=== PATIENT | female | born 1935 | race American Indian/Alaskan Native ===

== ENCOUNTER 2020-09-05 11:52 | Emergency (ER) | payer MEDICARE, OTHER ==
--- NOTE | 2020-09-05 12:14 | EDM.PDOC ---
ED HPI GENERAL MEDICAL PROBLEM - General Chief Complaint: Respiratory Problem Stated Complaint: shortness of breath Time Seen by Provider: 09/05/20 12:13 Source of Information: Reports: Patient, Family (granddaughter), Old Records, RN, RN Notes Reviewed History Limitations: Reports: No Limitations - History of Present Illness INITIAL COMMENTS - FREE TEXT/NARRATIVE: Pt arrives to ER from home by ambulance with c/o not been feeling good for about a week. She reports shortness of breath, fatigue, and has not been eating well. Her home health nurse was in to see patient today and found patient to have O2 sats in the 70's. The paramedics gave oxygen at 5L/min. by nasal cannula, and she felt less short of breath. Patient states she has had family around her with known COVID. Pt also c/o black diarrhea that smells "rotted". Denies chest pain, fever, abdominal pain, vomiting, lightheadedness, or syncope. Onset: Gradual Duration: Day(s): (5) Location: Reports: Chest, Generalized Quality: Reports: Other (Denies pain) Severity: Severe Improves with: Reports: None Worsens with: Reports: None Context: Reports: Sick Contact Associated Symptoms: Reports: No Other Symptoms - Related Data Allergies Allergy/AdvReac Type Severity Reaction Status Date / Time No Known Allergies Allergy Verified 09/05/20 12:16 Home Meds: Home Meds Aspirin 81 mg PO DAILY 09/05/20 [History] Cholecalciferol (Vitamin D3) [Vitamin D3] 25 mcg PO DAILY 09/05/20 [History] Insulin Detemir [Levemir] 20 units SUBCUT BEDTIME 09/05/20 [History] Insulin Lispro [Humalog] 15 units SUBCUT ASDIRECTED 09/05/20 [History] Levothyroxine 25 mcg PO DAILY 09/05/20 [History] Loratadine [Claritin] 10 mg PO DAILY 09/05/20 [History] Metoprolol Succinate [Toprol Xl] 25 mg PO DAILY 09/05/20 [History] Multivitamin 1 tab PO DAILY 09/05/20 [History] lisinopriL [Lisinopril] 40 mg PO DAILY 09/05/20 [History] Past Medical History HEENT History: Reports: Hard of Hearing Cardiovascular History: Reports: Hypertension Endocrine/Metabolic History: Reports: Diabetes, Type II, Hypothyroidism, IDDM, Vitamin D Deficiency Social & Family History - Family History Family Medical History: No Pertinent Family History Other Respiratory Family Hisory: multiple close contact family members with active COVID infection as of 09/05/20. - Tobacco Use Tobacco Use Status *Q: Never Tobacco User - Alcohol Use Alcohol Use History: No - Recreational Drug Use Recreational Drug Use: No - Living Situation & Occupation Living situation: Reports: with Family Occupation: Retired ED ROS GENERAL - Review of Systems Review Of Systems: Comprehensive ROS is negative, except as noted in HPI. ED EXAM, GENERAL - Physical Exam Exam: See Below Exam Limited By: No Limitations General Appearance: Alert, WD/WN, No Apparent Distress, Other (Frail elderly female, appears ill but not toxic.) Eye Exam: Bilateral Eye: Normal Inspection Ears: Normal External Exam, Hearing Loss (chronic/stable) Nose: Normal Inspection, Normal Mucosa, No Blood Throat/Mouth: Normal Inspection, Normal Lips, Normal Voice, No Airway Compromise Head: Atraumatic, Normocephalic Neck: Normal Inspection, Supple, Non-Tender, Full Range of Motion Respiratory/Chest: No Respiratory Distress, Lungs Clear, Normal Breath Sounds, No Accessory Muscle Use, Chest Non-Tender. No: Crackles, Rales, Rhonchi, Wheezing, Stridor Cardiovascular: Regular Rate, Rhythm, No Edema GI/Abdominal: Normal Bowel Sounds, Soft, Non-Tender, No Organomegaly, No Distention, No Abnormal Bruit, No Mass (Female) Exam: Deferred Rectal (Female) Exam: Black Stool (Liquid), Heme + Stool Back Exam: Normal Inspection Extremities: Normal Inspection, Normal Range of Motion, Non-Tender, Normal Capillary Refill, No Pedal Edema Neurological: Alert, Oriented, CN II-XII Intact, Normal Cognition, No Motor/Sensory Deficits, Other (Generalized weakness) Psychiatric: Normal Mood Skin Exam: Warm, Dry, Intact, Normal Color, No Rash #1 Interpretation EKG Date: 09/05/20 Time: 13:24 Rhythm: Other (SR) Rate (Beats/Min): 79 [place]: LAD-Left [place] Deviation P-Wave: Present QRS: RBBB (LVH) ST-T: Normal QT: Prolonged (borderline) Comparison: NA - No Prior EKG Course - Vital Signs Last Recorded V/S: Last Vital Signs Temp 97.2 F 09/05/20 12:16 Pulse 80 09/05/20 12:16 Resp 18 09/05/20 12:16 BP 164/58 H 09/05/20 12:16 Pulse Ox 92 L 09/05/20 13:35 - Orders/Labs/Meds Orders: Active Orders 24 hr Category Date Time Status EKG 12 Lead [EKG Documentation Completion] [RC] STAT Care 09/05/20 12:16 Active Peripheral IV Care [RC] . DIRECTED Care 09/05/20 12:17 Active RT Post Treatment Assessment [RC] Click to Edit Care 09/05/20 12:18 Active RT Pre-Treatment Assessment [RC] Click to Edit Care 09/05/20 12:18 Active CLOSTRIDIUM DIFFICILE TOX RFLX [MREF] Stat Lab 09/05/20 12:37 Received CULTURE BLOOD [BC] Stat Lab 09/05/20 12:25 Received CULTURE BLOOD [BC] Stat Lab 09/05/20 12:28 Received CULTURE STOOL [RM] Stat Lab 09/05/20 12:53 Received SHIGA TOXIN 1 & 2 [MREF] Stat Lab 09/05/20 12:53 Received UA RFX PASCUAL AND CULT IF INDIC [URIN] Stat Lab 09/05/20 12:17 Ordered Pantoprazole [ProTONIX IV] 40 mg Med 09/05/20 15:00 Active Sodium Chloride 0.9% [Normal Saline] 100 ml IV .CONTINUOS Sodium Chloride 0.9% [Saline Flush] Med 09/05/20 12:17 Active 10 ml FLUSH ASDIRECTED PRN Blood Culture x2 Reflex Set [OM.PC] Stat Oth 09/05/20 12:16 Ordered Isolation [COMM] Routine Oth 09/05/20 12:15 Active Isolation [COMM] Stat Oth 09/05/20 12:52 Active Peripheral IV Insertion Adult [OM.PC] Stat Oth 09/05/20 12:16 Ordered Medication Orders Pantoprazole Sodium 40 mg/ (Sodium Chloride) 100 mls @ 20 mls/hr IV .CONTINUOS DENNYS Last Admin: 09/05/20 15:24 Dose: 20 mls/hr Documented by: Sodium Chloride (Saline Flush) 10 ml FLUSH ASDIRECTED PRN PRN Reason: Keep Vein Open Labs: Laboratory Tests 12/07/20 12/07/20 12/07/20 Range/Units 12:15 12:28 12:28 WBC 11.0 H (5.0-10.0) 10^3/uL RBC 3.49 L (4.2-5.4) 10^6/uL Hgb 10.8 L (12.0-16.0) g/dL Hct 31.5 L (37.0-47.0) % MCV 90.3 (80-100) fL MCH 30.9 (27.0-34.0) pg MCHC 34.3 (33.0-35.0) g/dL Plt Count 275 (150-450) 10^3/uL Neut % (Auto) 89.0 H (42.2-75.2) % Lymph % (Auto) 9.4 L (20.5-50.1) % [place] % (Auto) 1.5 L (2-8) % Eos % (Auto) 0.0 L (1.0-3.0) % Baso % (Auto) 0.1 (0.0-1.0) % PT (9.0-12.0) SEC INR (0.9-1.2) APTT (22.0-34.0) SEC D-Dimer, Quantitative (0-400) ng/mL Sodium 133 L (136-145) mmol/L Potassium 3.6 (3.5-5.1) mmol/L Chloride 101 (98-107) mmol/L Carbon Dioxide 15 L (21-32) mmol/L Anion Gap 20.6 H (7-13) mEq/L BUN 50 H (7-18) mg/dL Creatinine 1.92 H (0.55-1.02) mg/dL Est Cr Clr Drug Dosing 15.67 mL/min Estimated GFR (MDRD) 25 BUN/Creatinine Ratio 26.0 (No establ ref range) Glucose 205 H (74-99) mg/dL Lactic Acid (0.4-2.0) mmol/L Calcium 8.3 L (8.5-10.1) mg/dL Magnesium 2.3 (1.8-2.4) mg/dL Ferritin (8-252) mg/mL Total Bilirubin 0.4 (0.2-1.0) mg/dL AST 186 H (15-37) U/L ALT 69 H (14-59) U/L Alkaline Phosphatase 221 H (46-116) U/L Lactate Dehydrogenase 710 H (81-234) U/L Creatine Kinase 104 (16-191) U/L Troponin I < 0.017 (0.000-0.056) ng/mL C-Reactive Protein 30.5 H (0.0-0.9) mg/dL B-Natriuretic Peptide 214 H (0-100) pg/ml Total Protein 7.8 (6.4-8.2) g/dL Albumin 2.2 L (3.4-5.0) g/dL Globulin 5.6 Albumin/Globulin Ratio 0.39 SARS-CoV-2 RNA (CHRISTIANO) Positive H (NEGATIVE) 09/05/20 09/05/20 09/05/20 Range/Units 12:28 12:28 12:28 WBC (5.0-10.0) 10^3/uL RBC (4.2-5.4) 10^6/uL Hgb (12.0-16.0) g/dL Hct (37.0-47.0) % MCV (80-100) fL MCH (27.0-34.0) pg MCHC (33.0-35.0) g/dL Plt Count (150-450) 10^3/uL Neut % (Auto) (42.2-75.2) % Lymph % (Auto) (20.5-50.1) % [place] % (Auto) (2-8) % Eos % (Auto) (1.0-3.0) % Baso % (Auto) (0.0-1.0) % PT 10.1 (9.0-12.0) SEC INR 1.1 (0.9-1.2) APTT 27.5 (22.0-34.0) SEC D-Dimer, Quantitative 3630 H (0-400) ng/mL Sodium (136-145) mmol/L Potassium (3.5-5.1) mmol/L Chloride (98-107) mmol/L Carbon Dioxide (21-32) mmol/L Anion Gap (7-13) mEq/L BUN (7-18) mg/dL Creatinine (0.55-1.02) mg/dL Est Cr Clr Drug Dosing mL/min Estimated GFR (MDRD) BUN/Creatinine Ratio (No establ ref range) Glucose (74-99) mg/dL Lactic Acid 2.4 H* (0.4-2.0) mmol/L Calcium (8.5-10.1) mg/dL Magnesium (1.8-2.4) mg/dL Ferritin 3714 H (8-252) mg/mL Total Bilirubin (0.2-1.0) mg/dL AST (15-37) U/L ALT (14-59) U/L Alkaline Phosphatase (46-116) U/L Lactate Dehydrogenase (81-234) U/L Creatine Kinase (16-191) U/L Troponin I (0.000-0.056) ng/mL C-Reactive Protein (0.0-0.9) mg/dL B-Natriuretic Peptide (0-100) pg/ml Total Protein (6.4-8.2) g/dL Albumin (3.4-5.0) g/dL Globulin Albumin/Globulin Ratio SARS-CoV-2 RNA (CHRISTIANO) (NEGATIVE) 09/05/20 Range/Units 15:22 WBC (5.0-10.0) 10^3/uL RBC (4.2-5.4) 10^6/uL Hgb 11.0 L (12.0-16.0) g/dL Hct 32.2 L (37.0-47.0) % MCV (80-100) fL MCH (27.0-34.0) pg MCHC (33.0-35.0) g/dL Plt Count (150-450) 10^3/uL Neut % (Auto) (42.2-75.2) % Lymph % (Auto) (20.5-50.1) % [place] % (Auto) (2-8) % Eos % (Auto) (1.0-3.0) % Baso % (Auto) (0.0-1.0) % PT (9.0-12.0) SEC INR (0.9-1.2) APTT (22.0-34.0) SEC D-Dimer, Quantitative (0-400) ng/mL Sodium (136-145) mmol/L Potassium (3.5-5.1) mmol/L Chloride (98-107) mmol/L Carbon Dioxide (21-32) mmol/L Anion Gap (7-13) mEq/L BUN (7-18) mg/dL Creatinine (0.55-1.02) mg/dL Est Cr Clr Drug Dosing mL/min Estimated GFR (MDRD) BUN/Creatinine Ratio (No establ ref range) Glucose (74-99) mg/dL Lactic Acid (0.4-2.0) mmol/L Calcium (8.5-10.1) mg/dL Magnesium (1.8-2.4) mg/dL Ferritin (8-252) mg/mL Total Bilirubin (0.2-1.0) mg/dL AST (15-37) U/L ALT (14-59) U/L Alkaline Phosphatase (46-116) U/L Lactate Dehydrogenase (81-234) U/L Creatine Kinase (16-191) U/L Troponin I (0.000-0.056) ng/mL C-Reactive Protein (0.0-0.9) mg/dL B-Natriuretic Peptide (0-100) pg/ml Total Protein (6.4-8.2) g/dL Albumin (3.4-5.0) g/dL Globulin Albumin/Globulin Ratio SARS-CoV-2 RNA (CHRISTIANO) (NEGATIVE) Meds: Medications Generic Name Dose Route Start Last Admin Trade Name Freq PRN Reason Stop Dose Admin Pantoprazole Sodium 40 mg/ 100 mls @ 20 mls/hr 09/05/20 15:00 09/05/20 15:24 Sodium Chloride IV 20 mls/hr .CONTINUOS DENNYS Administration Sodium Chloride 10 ml 09/05/20 12:17 Saline Flush FLUSH ASDIRECTED PRN Keep Vein Open Discontinued Medications Generic Name Dose Route Start Last Admin Trade Name Freq PRN Reason Stop Dose Admin Albuterol 6.7 gm 09/05/20 12:18 09/05/20 13:34 Proventil Hfa INH 09/05/20 12:19 2 puff ONETIME ONE Administration Dexamethasone 6 mg 09/05/20 12:18 09/05/20 13:34 Decadron IVPUSH 09/05/20 12:19 6 mg ONETIME ONE Administration Famotidine 40 mg 09/05/20 12:19 09/05/20 13:34 Pepcid PO 09/05/20 12:20 40 mg ONETIME ONE Administration Azithromycin 500 mg/ Sodium 250 mls @ 250 mls/hr 09/05/20 12:19 09/05/20 13:34 Chloride IV 09/05/20 13:18 250 mls/hr ONETIME ONE Administration Pantoprazole Sodium 80 mg 09/05/20 14:46 09/05/20 15:24 Protonix Iv IVPUSH 09/05/20 14:47 80 mg .BOLUS ONE Administration - Radiology Interpretation Free Text/Narrative:: CT Chest w/out contrast: extensive ground glass infiltration B/L, see radiologist's report. - Re-Assessments/Exams Free Text/Narrative Re-Assessment/Exam: 09/05/20 15:25 Pt reports feeling sick x5 days withi shortness of breath and black stools. Hemodynamically stable. Hypoxic with oxygen saturation 82% on RA and 88% on 5L/min. by NC. Pt remains conversant and mobile despite the hypoxia. Denies lightheadedness, chest pain, fever, or syncope. Pt stable enough to be admitted here from a respiratory/COVID standpoint. However, with the melena/GI bleed, the pt will need to be transferred to a higher level of care. Dr. Loyd accepts the pt as a direct admit to [facility] by ALS transport. Departure - Departure Time of Disposition: 15:27 Disposition: DC/Tfer to Acute Hospital 02 Condition: Fair, Serious Clinical Impression: Pneumonia due to COVID-19 virus, Acute respiratory failure due to COVID-19 GI bleed Qualifiers: GI bleed type/associated pathology: melena Qualified Code(s): K92.1 - Melena - Discharge Information *PRESCRIPTION DRUG MONITORING PROGRAM REVIEWED*: Not Applicable *COPY OF PRESCRIPTION DRUG MONITORING REPORT IN PATIENT JAIME: Not Applicable Forms: ED Department Discharge, Interfacility Transfer [facility] Sepsis Event Note (ED) - Focused Exam Vital Signs: Vital Signs Temp Pulse Resp BP Pulse Ox Pulse Ox 09/05/20 13:35 92 L 09/05/20 12:16 97.2 F 80 18 164/58 H 92 L - My Orders Last 24 Hours: My Active Orders 09/05/20 12:15 Isolation [COMM] Routine 09/05/20 12:16 EKG 12 Lead [EKG Documentation Completion] [RC] STAT Blood Culture x2 Reflex Set [OM.PC] Stat Peripheral IV Insertion Adult [OM.PC] Stat 09/05/20 12:17 Peripheral IV Care [RC] . DIRECTED UA RFX PASCUAL AND CULT IF INDIC [URIN] Stat Sodium Chloride 0.9% [Saline Flush] 10 ml FLUSH ASDIRECTED PRN 09/05/20 12:18 RT Post Treatment Assessment [RC] Click to Edit RT Pre-Treatment Assessment [RC] Click to Edit 09/05/20 12:25 CULTURE BLOOD [BC] Stat 09/05/20 12:28 CULTURE BLOOD [BC] Stat 09/05/20 12:37 CLOSTRIDIUM DIFFICILE TOX RFLX [MREF] Stat 09/05/20 12:52 Isolation [COMM] Stat 09/05/20 12:53 CULTURE STOOL [RM] Stat SHIGA TOXIN 1 & 2 [MREF] Stat 09/05/20 15:00 Pantoprazole [ProTONIX IV] 40 mg Sodium Chloride 0.9% [Normal Saline] 100 ml IV .CONTINUOS - Assessment/Plan Last 24 Hours: My Active Orders 09/05/20 12:15 Isolation [COMM] Routine 09/05/20 12:16 EKG 12 Lead [EKG Documentation Completion] [RC] STAT Blood Culture x2 Reflex Set [OM.PC] Stat Peripheral IV Insertion Adult [OM.PC] Stat 09/05/20 12:17 Peripheral IV Care [RC] . DIRECTED UA RFX PASCUAL AND CULT IF INDIC [URIN] Stat Sodium Chloride 0.9% [Saline Flush] 10 ml FLUSH ASDIRECTED PRN 09/05/20 12:18 RT Post Treatment Assessment [RC] Click to Edit RT Pre-Treatment Assessment [RC] Click to Edit 09/05/20 12:25 CULTURE BLOOD [BC] Stat 09/05/20 12:28 CULTURE BLOOD [BC] Stat 09/05/20 12:37 CLOSTRIDIUM DIFFICILE TOX RFLX [MREF] Stat 09/05/20 12:52 Isolation [COMM] Stat 09/05/20 12:53 CULTURE STOOL [RM] Stat SHIGA TOXIN 1 & 2 [MREF] Stat 09/05/20 15:00 Pantoprazole [ProTONIX IV] 40 mg Sodium Chloride 0.9% [Normal Saline] 100 ml IV .CONTINUOS
[2020-09-05] MEDS ORDERED: Sodium Chloride 0.9% 10 ML Syringe FLUSH PRN (12:17)
[2020-09-05] MEDS ORDERED: Dexamethasone 4 MG/ML SDV IVPUSH ONE (12:18)
[2020-09-05] MEDS ORDERED: Albuterol 6.7 GM Inhaler INH ONE (12:18)
[2020-09-05] MEDS ORDERED: Famotidine 20 MG Tab PO ONE (12:19)
[2020-09-05] MEDS ORDERED: Azithromycin 500 MG in Sodium Chloride 0.9% 250 ML IV ONE (12:19)
[2020-09-05 13:00] LABS: PTT,PARTIAL THROMBOPLSTIN TIME 27.5 SEC (22.0-34.0)
[2020-09-05 13:12] LABS: ANION GAP 20.6 mEq/L (7-13); CHLORIDE,CL 101 mmol/L (98-107); SODIUM,NA 133 mmol/L (136-145)
[2020-09-05] MEDS ORDERED: Pantoprazole 40 MG Vial IVPUSH ONE (14:46)
[2020-09-05] MEDS ORDERED: Pantoprazole 40 MG in Sodium Chloride 0.9% 100 ML IV SCH (15:00)
--- NOTE | 2020-09-05 15:35 | CT ---
EXAMINATION: Chest wo Cont SEX: Female AGE: 85 years CLINICAL HISTORY: 85-year-old female with chest pain and hypoxia (shortness of breath). COVID +. Scan technique: Volume acquisition of data emergency unenhanced CT scan of the chest (bony thorax, lungs and mediastinum) obtained with patient lying supine on the Siemens multislice scanner [place], [place]. All data archived in the PACS system for storage, reformatting axial/sagittal/coronal planes and study (lung/mediastinal windows). No comparison exams. INTERPRETATION: ABNORMAL. 1. *Generalized (diffuse) interstitial "groundglass" densities throughout both lung forte but without underlying air bronchograms. No significant hilar/mediastinal lymphadenopathy or dependent pleural effusion. 2. No suspicious nodules or parenchymal mass lesion. 3. Midline tracheal bronchial airway unremarkable. No pneumothorax or pneumomediastinum. 4. Borderline cardiomegaly with extensive coronary artery calcification. Prominent pericardial fat. No pericardial effusion. No pulmonary vascular congestion or alveolar edema. Pattern not typical of "heart failure". CONCLUSION: Interstitial pneumonia. Appearance most consistent with COVID19 infection.
== END 2020-09-05 16:25 ==
LOC: DL.ED 11:52
DX: U07.1 COVID-19 (principal); J12.89 Other viral pneumonia; J96.00 Acute respiratory failure, unspecified whether with hypoxia or hypercapnia; K92.1 Melena; I10 Essential (primary) hypertension; E11.9 Type 2 diabetes mellitus without complications; E03.9 Hypothyroidism, unspecified; Z79.4 Long term (current) use of insulin; Z79.82 Long term (current) use of aspirin; Z79.899 Other long term (current) drug therapy
CPT/HCPCS: 36415; 71250; 80053; 82272; 82550; 82728; 83605; 83615; 83735; 83880; 84484; 85014; 85018; 85025; 85379; 85610; 85730; 86140; 87040; 87045; 87046; 87077; 87186; 87493; 87804; 87899; 93005; 93010; 96365; 96367; 96375; 99284; 99285-25; A9270-GY; C9113; J0456; J1100; J7050; U0002